=== PATIENT | female | born 1975 | race Caucasian/White ===

== ENCOUNTER 2017-10-17 08:07 | Emergency (ER) | payer MEDICAID ==
[2017-10-17] MEDS: METOCLOPRAMIDE 10 MG TAB PO (10:39)
[2017-10-17] MEDS: ACETAMINOPHEN 500 MG TAB PO (10:39)
[2017-10-17] MEDS: KETOROLAC 15 MG INJ IV (11:08)
[2017-10-17] MEDS: SOD CHLORIDE 0.9% 1,000 ML IV (11:08)
== END 2017-10-17 12:11 | disposition home or self-care (01) ==
LOC: FTE 08:07
DX: J06.9 Acute upper respiratory infection, unspecified (principal)
CPT/HCPCS: 96374; 99284-25

== ENCOUNTER 2018-03-19 15:09 | Emergency (ER) | payer MEDICAID | END 2018-03-19 17:19 | disposition home or self-care (01) | LOC: FTE 15:09 | DX: R13.10 Dysphagia, unspecified (principal) | CPT/HCPCS: 70360; 71045; 99284-25 ==